=== PATIENT | male | born 1970 | race Caucasian/White ===

== ENCOUNTER → 2019-01-05 | Outpatient (CLI) | payer OTHER ==
--- NOTE | 2019-01-05 15:41 | XR ---
EXAMINATION TYPE: XR orbit detect foreign body DATE OF EXAM: 01/05/2019 COMPARISON: NONE HISTORY: MRI clearance possible metallic foreign body. TECHNIQUE: X-ray orbital detect foreign body. Blood and Hector frontal projection as well as true lateral projection. FINDINGS: No metallic intraorbital foreign body is seen to prevent MRI study. IMPRESSION: As above.
== END | disposition home or self-care (01) ==
LOC: RADXRMAIN 15:18
PROVIDERS: ATTEND Orthopaedic Surgery Sports Medicine
DX: Z01.818 Encounter for other preprocedural examination (principal)
CPT/HCPCS: 70030

== ENCOUNTER 2019-12-30 18:49 | Emergency (ER) | payer OTHER ==
[2019-12-30 18:54] VITALS: RESP 18
--- NOTE | 2019-12-30 20:13 | ED ---
Skin/Abscess/FB HPI - General Chief complaint: Skin/Abscess/Foreign Body Stated complaint: Insect bite Time Seen by Provider: 12/30/19 20:12 Source: patient Mode of arrival: ambulatory Limitations: no limitations - History of Present Illness Initial comments: Patient is a 49-year-old male presenting to emergency Department with chief complaint of a insect bite. Patient reports yesterday he developed an insect bite on the left forearm. Patient reports there was initially infection that was bigger but has not decreased in size after he was able to squeeze out some pus earlier today. Patient also reports today's noticed some red streaking moving proximally along the forearm. Patient reports there is minimal pain at the insect site but he was concerned for streaking so he came to the ED for evaluation. Denies any night sweats fevers or chills. Denies any significant upper changes between the insect bite site and the rest of his tissues. - Related Data Previous Rx's Medication Instructions Recorded Cephalexin [Keflex] 500 mg PO Q6HR #28 cap 12/30/19 Sulfamethox-Tmp 800-160Mg [Bactrim 1 each PO Q12HR #20 tab 12/30/19 Ds] Allergies Allergy/AdvReac Type Severity Reaction Status Date / Time No Known Allergies Allergy Verified 12/30/19 18:54 Review of Systems ROS Statement: Those systems with pertinent positive or pertinent negative responses have been documented in the HPI. ROS Other: All systems not noted in ROS Statement are negative. Past Medical History Past Medical History: No Reported History History of Any Multi-Drug Resistant Organisms: None Reported Past Surgical History: No Surgical Hx Reported Past Psychological History: No Psychological Hx Reported Smoking Status: Current every day smoker Past Alcohol Use History: Daily Past Drug Use History: Marijuana, Methamphetamine General Exam Limitations: no limitations General appearance: alert, in no apparent distress Head exam: Present: atraumatic, normocephalic, normal inspection Eye exam: Present: normal appearance, PERRL, EOMI Pupils: Present: normal accommodation ENT exam: Present: normal exam, normal oropharynx, mucous membranes moist, TM's normal bilaterally, normal external ear exam Neck exam: Present: normal inspection, full ROM. Absent: tenderness Respiratory exam: Present: normal lung sounds bilaterally. Absent: respiratory distress, wheezes, rales Cardiovascular Exam: Present: regular rate, normal rhythm, normal heart sounds Extremities exam: Present: full ROM, normal capillary refill, other (+2 ulnar and radial pulses bilateral.). Absent: normal inspection (There appears to be an abscess formation on the left forearm with a region of induration measuring approximately 3 cm in diameter with no fluctuance. No immediate discharge at this time. There also appears to be red streaking along the anterior aspect of the forearm.), tenderness (Mild to moderate tenderness at the site of abscess.) Back exam: Present: normal inspection, full ROM. Absent: tenderness Neurological exam: Present: alert, oriented X3, normal gait Psychiatric exam: Present: normal affect, normal mood Skin exam: Present: warm, dry, intact, normal color Course Vital Signs 12/30/19 12/30/19 18:51 20:53 Temperature 98 F 98.8 F Pulse Rate 95 82 Respiratory 18 18 Rate Blood Pressure 141/78 151/79 O2 Sat by Pulse 100 97 Oximetry Medical Decision Making - Medical Decision Making Patient is a 49-year-old male presenting to the emergency department with a chief complaint of insect bite. On exam patient has an abscess but it is not worth incision and drainage this time because there is no fluctuance palpable. There is only induration at this time. Patient started on Bactrim. There also appears to be some streaking suggesting lymphangitis that has been moving proximally along the forearm. Patient will also be discharged 10 day course of Bactrim. His vital stable. He has not been complaining of any fatigue weakness night sweats fevers or chills. Strict return parameters were thoroughly discussed the patient is understanding and agreeable. He was advised to follow- up with his primary care physician. Patient will also be started on Keflex. Case discussed with physician. Disposition Clinical Impression: Insect bite, Lymphangitis, Abscess of forearm Disposition: HOME SELF-CARE Condition: Stable Instructions (If sedation given, give patient instructions): Abscess (ED) Additional Instructions: Take prescribed medication as directed. Follow-up with a primary care physician. Return to emergency department if symptoms worsen. Prescriptions: Sulfamethox-Tmp 800-160Mg [Bactrim Ds] 1 each PO Q12HR #20 tab Cephalexin [Keflex] 500 mg PO Q6HR #28 cap Is patient prescribed a controlled substance at d/c from ED?: No Referrals: Madhavi Gaxiola MD [Primary Care Provider] - 1-2 days Time of Disposition: 20:43
[2019-12-30] MEDS ORDERED: SULFAMETHOX-TMP 800-160MG 1 EACH TAB PO STA (20:32)
[2019-12-30 20:54] VITALS: BP 151/79; PULSE 82; TEMP 98.8
== END 2019-12-30 20:54 | disposition home or self-care (01) ==
LOC: EC 18:49
DX: L02.414 Cutaneous abscess of left upper limb (principal); F17.200 Nicotine dependence, unspecified, uncomplicated; W57.XXXA Bitten or stung by nonvenomous insect and other nonvenomous arthropods, initial encounter
CPT/HCPCS: 99281

== ENCOUNTER 2020-01-01 06:01 | Emergency (ER) | payer OTHER ==
[2020-01-01 06:08] VITALS: BP 150/87; PULSE 96; RESP 18; TEMP 99
[2020-01-01] MEDS ORDERED: CEPHALEXIN 500MG STARTER PACK 4 CAP BTL PO STA (06:25)
[2020-01-01] MEDS ORDERED: cefTRIAXone 1,000 MG VIAL (IM USE) IM STA (06:25)
[2020-01-01] MEDS ORDERED: SULFAMETH-TMP DS STARTER PACK 2 TAB BTL PO STA (06:25)
--- NOTE | 2020-01-01 06:30 | ED ---
Skin/Abscess/FB HPI - General Chief complaint: Skin/Abscess/Foreign Body Stated complaint: recheck spider bite Time Seen by Provider: 01/01/20 06:08 Source: patient, RN notes reviewed Mode of arrival: ambulatory Limitations: no limitations - History of Present Illness Initial comments: This a 49-year-old male presents emergency Department with chief complaint of abscess to his left forearm. Patient was seen here few days ago for similar complaints but did not fill the prescription. Patient states that it seemed to worsen but now is starting to drain which is helping. Denies any fevers or chills. Denies any pain in his bicep region or left axilla. Patient denies any chest or shortness breath no nausea vomiting no other complaints. - Related Data Previous Rx's Medication Instructions Recorded Cephalexin [Keflex] 500 mg PO Q6HR #28 cap 12/30/19 Sulfamethox-Tmp 800-160Mg [Bactrim 1 each PO Q12HR #20 tab 12/30/19 Ds] Allergies Allergy/AdvReac Type Severity Reaction Status Date / Time No Known Allergies Allergy Verified 01/01/20 06:08 Review of Systems ROS Statement: Those systems with pertinent positive or pertinent negative responses have been documented in the HPI. ROS Other: All systems not noted in ROS Statement are negative. Past Medical History Past Medical History: No Reported History History of Any Multi-Drug Resistant Organisms: None Reported Past Surgical History: No Surgical Hx Reported Past Psychological History: No Psychological Hx Reported Smoking Status: Current every day smoker Past Alcohol Use History: Daily Past Drug Use History: Marijuana, Methamphetamine General Exam Limitations: no limitations General appearance: alert, in no apparent distress Head exam: Present: atraumatic, normocephalic, normal inspection Eye exam: Present: normal appearance, PERRL, EOMI. Absent: scleral icterus, conjunctival injection, periorbital swelling Respiratory exam: Present: normal lung sounds bilaterally. Absent: respiratory distress, wheezes, rales, rhonchi, stridor Cardiovascular Exam: Present: regular rate, normal rhythm, normal heart sounds. Absent: systolic murmur, diastolic murmur, rubs, gallop, clicks Extremities exam: Present: other (Left forearm there is approximately 1.5 cm nonfluctuant erythematous abscess with streaking erythema to the left elbow there is no tenderness proximal to left elbow there is no palpable lymph nodes left axilla is full range of motion left elbow) Skin exam: Present: warm, dry Course Vital Signs 01/01/20 06:04 Temperature 99 F Pulse Rate 96 Respiratory 18 Rate Blood Pressure 150/87 O2 Sat by Pulse 99 Oximetry Medical Decision Making - Medical Decision Making 49-year-old presented for abscess. Patient was given a shot of Rocephin advised to fill his prescription for antibiotics and was provided started packs. He is to continue warm compresses and he has to follow-up with PCP in 24 hours return to emergency department for recheck. Disposition Clinical Impression: Abscess of left forearm, Acute lymphangitis of left upper extremity Disposition: HOME SELF-CARE Condition: Stable Instructions (If sedation given, give patient instructions): Abscess (ED) Additional Instructions: Please follow-up for recheck and structure antiemetics as directed. Please return to the Emergency Department if symptoms worsen or any other concerns. Is patient prescribed a controlled substance at d/c from ED?: No Referrals: Madhavi Gaxiola MD [Primary Care Provider] - 1-2 days Time of Disposition: 06:30
== END 2020-01-01 06:30 | disposition home or self-care (01) ==
LOC: EC 06:01
DX: L02.414 Cutaneous abscess of left upper limb (principal); L03.124 Acute lymphangitis of left upper limb; F17.200 Nicotine dependence, unspecified, uncomplicated
CPT/HCPCS: 99283; 96372; J0696

== ENCOUNTER 2020-01-15 01:26 | Emergency (ER) | payer OTHER ==
[2020-01-15] MEDS ORDERED: HYDROmorphone 1 MG/ML 1 ML SYRINGE IVP STA (01:50)
[2020-01-15] MEDS ORDERED: LORazepam 2 MG/ML INJ IV STA (01:50)
[2020-01-15 02:27] LABS: Basophils # (A) 0.1 k/uL (0-0.2); Basophils % (A) 1 %; Eosinophils # (A) 0.2 k/uL (0-0.7); Eosinophils % (A) 1 %; HGB 15.8 gm/dL (13.0-17.5); Lymphocytes # (A) 1.5 k/uL (1.0-4.8); Lymphocytes % (A) 12 %; MCH 30.5 pg (25.0-35.0); MCHC 32.9 g/dL (31.0-37.0); MCV 92.7 fL (80.0-100.0); Mean Platelet Volume 6.6; Monocytes # (A) 0.8 k/uL (0-1.0); Monocytes % (A) 6 %; Neutrophils # (A) 9.7 k/uL (1.3-7.7); Neutrophils % (A) 79 %; Platelet Count 467 k/uL (150-450); RBC 5.17 m/uL (4.30-5.90); RDW 12.3 % (11.5-15.5); WBC 12.3 k/uL (3.8-10.6)
[2020-01-15] MEDS ORDERED: SODIUM CHLORIDE 0.9% 1,000 ML IV ONE (02:33)
--- NOTE | 2020-01-15 02:51 | US ---
EXAMINATION TYPE: US scrotum with doppler. Grayscale and color Doppler Duplex imaging performed of claudia deleon scrotum. DATE OF EXAM: 01/15/2020 COMPARISON: NONE CLINICAL HISTORY: pain. Pain in bilateral testicles x 6 days. EXAM MEASUREMENTS: TESTICLES: Right Testicle: 3.8 x 3.3 x 2.5 cm Left Testicle: 3.7 x 3.0 x 2.4 cm EPIDIDYMIS HEAD: Right Epididymis: 0.7 x 1.5 x 1.0 cm Left Epididymis: 1.1 x 1.5 x 1.7 cm -Anechoic area seen in right epididymal head: 0.3 x 0.4 x 0.4 cm. -Heterogeneous, vascular area seen lateral to right testicle measurin.0 x 2.4 x 2.1 cm , possible epididymal body and tail. -Heterogeneous, vascular area seen lateral to left testicle measurin.2 x 1.5 x 1.9 cm, possible e pididymal body and tail. Doppler performed to assess for testicular vascularity; bilateral color flow and waveforms are seen. Presence of hydroceles: Yes, on left measurin.1 x 0.7 x 0.3 cm. Presence of varicoceles: Vessels measure up to 1.8 mm on right and 1.3 mm on left. -Skin thickness measures 1.1 cm in greatest AP measurement. IMPRESSION: No testicular Torsion or mass. Skin thickening consistent with edema. Increased vascularity posterior to both testicles that could relate to bilateral epididymitis. No leslee dence of an abscess.
[2020-01-15] MEDS ORDERED: DOXYCYCLINE 100 MG CAP PO STA (02:52)
[2020-01-15] MEDS ORDERED: cefTRIAXone 1,000 MG VIAL (IM USE) IM STA (02:52)
[2020-01-15 02:53] LABS: ALT 23 U/L (4-49); AST 30 U/L (17-59); African American GFR (CKD) >90 (>60 ml/min/1.73 sqM); Albumin 3.6 g/dL (3.5-5.0); Alkaline Phosphatase 111 U/L (38-126); Anion Gap 5 mmol/L; Blood Urea Nitrogen 12 mg/dL (9-20); Carbon Dioxide 28 mmol/L (22-30); Chloride 102 mmol/L (98-107); Glucose 112 mg/dL (74-99); Non-African American GFR(CKD) >90 (>60 ml/min/1.73 sqM); Potassium 4.3 mmol/L (3.5-5.1); Sodium 135 mmol/L (137-145); Total Bilirubin 0.5 mg/dL (0.2-1.3); Total Protein 6.6 g/dL (6.3-8.2)
--- NOTE | 2020-01-15 03:17 | ED ---
General Adult HPI <Vivi Barth - Last Filed: 01/15/20 04:33> - General Source: patient, RN notes reviewed, old records reviewed Mode of arrival: ambulatory Limitations: no limitations <Asael Henderson - Last Filed: 01/18/20 14:23> - General Chief complaint: Urogenital Stated complaint: Testicle pain Time Seen by Provider: 01/15/20 01:31 - History of Present Illness Initial comments: 49-year-old male patient presents to ED forbilateral testicle pain that began about 2 days ago. Denies any fevers chills nausea vomiting or diarrhea. Denies any dysuria. Denies any other acute complaints. Systemic: Pt denies fatigue, fever/chills, rash. Pt denies weakness, night sweats, weight loss. Neuro: Pt denies headache, visual disturbances, syncope or pre-syncope. HEENT: Pt denies ocular discharge or irritation, otalgia, rhinorrhea, pharyngitis or notable lymphadenopathy. Cardiopulmonary: Pt denies chest pain, SOB, heart palpitations, dyspnea on exertion. Abdominal/GI: Pt denies abdominal pain, n/v/d. : Pt denies dysuria, burning w/ urination, frequency/urgency. Denies new onset urinary or bowel incontinence. MSK: Pt denies myalgia, loss of strength or function in extremities. Neuro: Pt denies new onset weakness, paresthesias. (Asael Henderson) - Related Data Previous Rx's Medication Instructions Recorded Cephalexin [Keflex] 500 mg PO Q6HR #28 cap 12/30/19 Sulfamethox-Tmp 800-160Mg [Bactrim 1 each PO Q12HR #20 tab 12/30/19 Ds] Doxycycline [Vibramycin] 100 mg PO BID 14 Days #28 capsule 01/15/20 Allergies Allergy/AdvReac Type Severity Reaction Status Date / Time No Known Allergies Allergy Verified 01/15/20 01:42 Review of Systems ROS Other: All systems not noted in ROS Statement are negative. <Vivi Barth - Last Filed: 01/15/20 04:33> ROS Other: All systems not noted in ROS Statement are negative. <Asael Henderson - Last Filed: 01/18/20 14:23> ROS Statement: Those systems with pertinent positive or pertinent negative responses have been documented in the HPI. Past Medical History Past Medical History: No Reported History History of Any Multi-Drug Resistant Organisms: None Reported Past Surgical History: No Surgical Hx Reported Past Psychological History: No Psychological Hx Reported Smoking Status: Current every day smoker Past Alcohol Use History: Daily Past Drug Use History: Marijuana, Methamphetamine <Asael Henderson - Last Filed: 01/18/20 14:23> General Exam Limitations: no limitations <Asael Henderson - Last Filed: 01/18/20 14:23> - General Exam Comments Initial Comments: Constitutional: NAD, AOX3, Pt has pleasant affect. HEENT: NC/AT, trachea midline, neck supple, no lymphadenopathy. External ears appear normal, without discharge. Mucous membranes moist. Eyes PERRLA, EOM intact. There is no scleral icterus. No pallor noted. Cardiopulmonary: RRR, no murmurs, rubs or gallops, no JVD noted. Lungs CTAB in anterior and posterior chisholm. No peripheral edema. Abdominal exam: Abdomen soft and non-distended. Abdomen non-tender to palpation in all 4 quadrants. Bowel sounds active in LLQ. No hepatosplenomegaly. No ecchymosis Neuro: CN II-XII grossly intact. No nuchal rigidity. MSK: No posterior calf tenderness bilaterally. Posterior tibialis and radial pulse +2 bilaterally. Sensation intact in upper and lower extremities. Full a ctive ROM in upper and lower extremities, 5/5 stregnth. : Mild bilateral scrotal tenderness. Cremasteric reflexes intact. No extrenal skin change. no blue dot sign. No masses. (Asael Henderson) Course Vital Signs 01/15/20 01/15/20 01/15/20 01:40 02:50 03:45 Temperature 98.5 F Pulse Rate 107 H 86 84 Respiratory 20 19 19 Rate Blood Pressure 123/79 123/76 124/74 O2 Sat by Pulse 95 96 95 Oximetry 01/15/20 04:44 Temperature 97.9 F Pulse Rate 83 Respiratory 18 Rate Blood Pressure 123/75 O2 Sat by Pulse 97 Oximetry Medical Decision Making - Lab Data Result diagrams: 01/15/20 02:08 01/15/20 02:08 <Vivi Barth - Last Filed: 01/15/20 04:33> - Lab Data Result diagrams: 01/15/20 02:08 01/15/20 02:08 <Asael Henderson - Last Filed: 01/18/20 14:23> - Medical Decision Making 49-year-old male patient presents to ED forbilateral testicle pain that began a bout 2 days ago. Denies any fevers chills nausea vomiting or diarrhea. Denies any dysuria. Denies any other acute complaints. Patient vital signs are stable, afebrile. Physical exam displayed: Mild bilateral scrotal tenderness. Cremasteric reflexes intact. No extrenal skin change. no blue dot sign. No masses. Laboratory investigations revealed mild leukocytosis. Ultrasound displayed likely bilateral epididymitis no evidence of an abscess. Patient does report that he does have some concern for possible sexually transmitted infection, denies any injections into the region or any IV drug use, denies anal sex or anything of that nature. Patient discharged with antibiotics and will di scharge the patient follow up. Return to ER if any worsening symptoms. Case discussed with Dr. Barth. (Asael Henderson) - Lab Data Lab Results 01/15/20 01/15/20 01/15/20 Range/Units 02:08 02:08 02:08 WBC 12.3 H (3.8-10.6) k/uL RBC 5.17 (4.30-5.90) m/uL Hgb 15.8 (13.0-17.5) gm/dL Hct 48.0 (39.0-53.0) % MCV 92.7 (80.0-100.0) fL MCH 30.5 (25.0-35.0) pg MCHC 32.9 (31.0-37.0) g/dL RDW 12.3 (11.5-15.5) % Plt Count 467 H (150-450) k/uL Neutrophils % 79 % Lymphocytes % 12 % Monocytes % 6 % Eosinophils % 1 % Basophils % 1 % Neutrophils # 9.7 H (1.3-7.7) k/uL Lymphocytes # 1.5 (1.0-4.8) k/uL Monocytes # 0.8 (0-1.0) k/uL Eosinophils # 0.2 (0-0.7) k/uL Basophils # 0.1 (0-0.2) k/uL Sodium (137-145) mmol/L Potassium (3.5-5.1) mmol/L Chloride (98-107) mmol/L Carbon Dioxide (22-30) mmol/L Anion Gap mmol/L BUN (9-20) mg/dL Creatinine (0.66-1.25) mg/dL Est GFR (CKD-EPI)AfAm (>60 ml/min/1.73 sqM) Est GFR (CKD-EPI)NonAf (>60 ml/min/1.73 sqM) Glucose (74-99) mg/dL Plasma Lactic Acid Walt (0.7-2.0) mmol/L Calcium (8.4-10.2) mg/dL Total Bilirubin (0.2-1.3) mg/dL AST (17-59) U/L ALT (4-49) U/L Alkaline Phosphatase (38-126) U/L Total Protein (6.3-8.2) g/dL Albumin (3.5-5.0) g/dL Urine Color Yellow Urine Appearance Cloudy (Clear) Urine pH 8.0 (5.0-8.0) Ur Specific [place] 1.022 (1.001-1.035) Urine Protein Trace H (Negative) Urine Glucose (UA) Negative (Negative) Urine Ketones Negative (Negative) Urine Blood Negative (Negative) Urine Nitrite Negative (Negative) Urine Bilirubin Negative (Negative) Urine Urobilinogen <2.0 (<2.0) mg/dL Ur Leukocyte Esterase Negative (Negative) Urine RBC 2 (0-5) /hpf Urine WBC 2 (0-5) /hpf Urine Mucus Occasional H (None) /hpf Chlamydia Source Urine Chlamydia DNA (PCR) Negative (Neg,Equiv) N. gonorrhoeae Source Urine N.gonorrhoeae DNA Probe Negative (Neg,Equiv) 01/15/20 01/15/20 Range/Units 02:08 02:08 WBC (3.8-10.6) k/uL RBC (4.30-5.90) m/uL Hgb (13.0-17.5) gm/dL Hct (39.0-53.0) % MCV (80.0-100.0) fL MCH (25.0-35.0) pg MCHC (31.0-37.0) g/dL RDW (11.5-15.5) % Plt Count (150-450) k/uL Neutrophils % % Lymphocytes % % Monocytes % % Eosinophils % % Basophils % % Neutrophils # (1.3-7.7) k/uL Lymphocytes # (1.0-4.8) k/uL Monocytes # (0-1.0) k/uL Eosinophils # (0-0.7) k/uL Basophils # (0-0.2) k/uL Sodium 135 L (137-145) mmol/L Potassium 4.3 (3.5-5.1) mmol/L Chloride 102 (98-107) mmol/L Carbon Dioxide 28 (22-30) mmol/L Anion Gap 5 mmol/L BUN 12 (9-20) mg/dL Creatinine 0.90 (0.66-1.25) mg/dL Est GFR (CKD-EPI)AfAm >90 (>60 ml/min/1.73 sqM) Est GFR (CKD-EPI)NonAf >90 (>60 ml/min/1.73 sqM) Glucose 112 H (74-99) mg/dL Plasma Lactic Acid Walt 1.4 (0.7-2.0) mmol/L Calcium 9.0 (8.4-10.2) mg/dL Total Bilirubin 0.5 (0.2-1.3) mg/dL AST 30 (17-59) U/L ALT 23 (4-49) U/L Alkaline Phosphatase 111 (38-126) U/L Total Protein 6.6 (6.3-8.2) g/dL Albumin 3.6 (3.5-5.0) g/dL Urine Color Urine Appearance (Clear) Urine pH (5.0-8.0) Ur Specific [place] (1.001-1.035) Urine Protein (Negative) Urine Glucose (UA) (Negative) Urine Ketones (Negative) Urine Blood (Negative) Urine Nitrite (Negative) Urine Bilirubin (Negative) Urine Urobilinogen (<2.0) mg/dL Ur Leukocyte Esterase (Negative) Urine RBC (0-5) /hpf Urine WBC (0-5) /hpf Urine Mucus (None) /hpf Chlamydia Source Chlamydia DNA (PCR) (Neg,Equiv) N. gonorrhoeae Source N.gonorrhoeae DNA Probe (Neg,Equiv) Disposition Is patient prescribed a controlled substance at d/c from ED?: No <Vivi Barth P - Last Filed: 01/15/20 04:33> Is patient prescribed a controlled substance at d/c from ED?: No <Asael Henderson - Last Filed: 01/18/20 14:23> Clinical Impression: Epididymitis Disposition: HOME SELF-CARE Condition: Stable Instructions (If sedation given, give patient instructions): Epididymitis (ED) Additional Instructions: Take antibiotics as directed. Follow-up with primary care provider and urologist tomorrow. Return to ER if any worsening symptoms. Prescriptions: Doxycycline [Vibramycin] 100 mg PO BID 14 Days #28 capsule Referrals: Madhavi Gaxiola MD [Primary Care Provider] - 1-2 days
[2020-01-15 04:15] LABS: Appearance,Urine Cloudy (Clear); Bilirubin,Urine Negative (Negative); Blood,Urine Negative (Negative); Color,Urine Yellow; Glucose,Urine (UA) Negative (Negative); Ketones,Urine Negative (Negative); Leukocyte Esterase,Urine Negative (Negative); Mucus,Urine Occasional /hpf; Nitrite,Urine Negative (Negative); Protein,Urine Trace (Negative); RBC,Urine 2 /hpf (0-5); Specific Gravity,Urine 1.022 (1.001-1.035); Urobilinogen,Urine <2.0 mg/dL (<2.0); WBC,Urine 2 /hpf (0-5)
[2020-01-15 04:58] VITALS: BP 123/75; PULSE 83; RESP 18; TEMP 97.9
[2020-01-16 15:14] LABS: C. trachomatis,PCR Negative (Neg,Equiv); Chlamydia trachomatis Source Urine; N. gonorrhoeae,PCR Negative (Neg,Equiv); Neisseria Source Urine
== END 2020-01-15 04:44 | disposition home or self-care (01) ==
LOC: EC 01:26
DX: N45.1 Epididymitis (principal); D72.829 Elevated white blood cell count, unspecified; F17.200 Nicotine dependence, unspecified, uncomplicated
CPT/HCPCS: 36415; 80053; 83605; 85025; 81001; 87040; 87491; 87591; 93975; 76870; 99284; 96374; 96375; 96361 ×2; 96372; J2060; J0696; J1170

== ENCOUNTER 2020-05-20 12:34 | Observation (INO) | payer OTHER ==
[2020-05-20] MEDS ORDERED: FLUORESCEIN STRIPS 1 MG STRIP LEFT EYE ONE (13:12)
[2020-05-20] MEDS ORDERED: predniSONE 20 MG TAB PO STA (13:14)
--- NOTE | 2020-05-20 13:24 | ED ---
General Adult HPI - General Chief complaint: Neuro Symptoms/Deficit Stated complaint: right side facial numbness Time Seen by Provider: 05/20/20 12:50 Source: patient Mode of arrival: ambulatory Limitations: no limitations - History of Present Illness Initial comments: 50-year-old male with no reported medical history once emergency department with reported numbness, tingling and right-sided facial droop. He reports that his symptoms have been ongoing since Tuesday. Patient has been unable to close his right eye admits to blurred vision. Admits to dysarthria. Denies expressive aphasia or confusion. No fevers or chills. Denies any recent head trauma. No hearing changes. Reports that his symptoms were present after he awoke from a nap. Denies history of strokes. No weakness, numbness or tingling in his extremities. Denies any headaches, fevers or chills. He purchased lubricating eye drops and has been using them several times per day. Patient presents with significant injection to his left eye. Reports to foreign body, suspected to be wood, which he was able to extract yesterday. Denies any visual changes out of his left eye. No other alleviating, precipitating or modifying factors - Related Data Previous Rx's Medication Instructions Recorded Ofloxacin 0.3% Ophth Soln [Ocuflox 1 drops LEFT EYE Q4HR 7 Days #1 05/21/20 Ophth Soln] bottle Allergies Allergy/AdvReac Type Severity Reaction Status Date / Time No Known Allergies Allergy Verified 05/20/20 14:13 Review of Systems ROS Statement: Those systems with pertinent positive or pertinent negative responses have been documented in the HPI. ROS Other: All systems not noted in ROS Statement are negative. Past Medical History Past Medical History: No Reported History History of Any Multi-Drug Resistant Organisms: None Reported Past Surgical History: No Surgical Hx Reported Past Psychological History: No Psychological Hx Reported Smoking Status: Current every day smoker Past Alcohol Use History: Daily Past Drug Use History: Marijuana, Methamphetamine - Past Family History Mother Additional Family Medical History / Comment(s): maternal aunt had stroke General Exam Limitations: no limitations General appearance: alert, in no apparent distress Head exam: Present: atraumatic, normocephalic, other (inability to wrinkle right forehead. right eye difficult to close. right facial droop) Eye exam: Present: PERRL, EOMI, conjunctival injection (left). Absent: scleral icterus, periorbital swelling ENT exam: Present: normal exam, mucous membranes moist Neck exam: Present: normal inspection. Absent: tenderness, meningismus, lymphadenopathy Respiratory exam: Present: normal lung sounds bilaterally. Absent: respiratory distress, wheezes, rales, rhonchi, stridor Cardiovascular Exam: Present: regular rate, normal rhythm, normal heart sounds. Absent: systolic murmur, diastolic murmur, rubs, gallop, clicks GI/Abdominal exam: Present: soft, normal bowel sounds. Absent: distended, tenderness, guarding, rebound, rigid Extremities exam: Present: normal inspection, full ROM, normal capillary refill. Absent: tenderness, pedal edema, joint swelling, calf tenderness Back exam: Present: normal inspection Neurological exam: Present: alert, oriented X3, CN II-XII intact Psychiatric exam: Present: normal affect, normal mood Skin exam: Present: warm, dry, intact, normal color. Absent: rash Course Vital Signs 05/20/20 05/20/20 05/20/20 12:52 15:19 15:59 Temperature 98.3 F 98.3 F Pulse Rate 106 H 77 Pulse Rate [ 72 Right Pulse Oximetery] Respiratory 18 16 17 Rate Blood Pressure 128/73 119/76 Blood Pressure 124/79 [Right Arm Sitting] O2 Sat by Pulse 97 100 97 Oximetry 05/20/20 17:12 Temperature 97.9 F Pulse Rate 82 Pulse Rate [ Right Pulse Oximetery] Respiratory 18 Rate Blood Pressure 123/78 Blood Pressure [Right Arm Sitting] O2 Sat by Pulse 98 Oximetry - Reevaluation(s) Reevaluation #1: Dr. Vazquez paged 05/20/20 14:12 Reevaluation #2: Spoke with Dr. Vazquez - requesting placement in stroke robot. Requesting MRI with and without contrast of brain 05/20/20 15:12 Reevaluation #3: Spoke with Dr. Gaxiola who requested admission 05/20/20 15:28 EKG Findings - EKG Comments: EKG Findings:: EKG demonstrates sinus rhythm with a ventricular rate of 88. SC interval 154. QRS E4. QTC of 459. No acute ST segment elevations or depressions Medical Decision Making - Medical Decision Making Upon arrival patient is placed into room 9. A thorough history and physical exam was performed. Laboratory studies were obtained. 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 I did stain the patient's left eye with the floor seems strip and evaluation was performed to identify foreign body. Patient does have copious drainage however no residual foreign body identified. I did order ofloxacin drops for the patient's left eye. Katy bricating eye drops for both eyes. I did request a stroke workup which the patient did agree. Laboratory studies are reviewed. Glucose is 119. CT of the patient's brain was read as a possible hyperdense left MCA indicating intralumenal thrombus with small petechial hemorrhage within the periphery of the left parietal lobe skull to exclude. Angiography is also performed which demonstrates no MCA thrombus. No large vessel intracranial occlusion, significant stenosis or aneurysmal change. I did discuss these results with the radiologist. Results are also discussed with Dr. Vazquez - states no large vessel occlusion. He is requesting an MRI with and without contrast. I discussed this with the patient who agreed to this plan. Spoke with Dr. Gaxiola who agreed to admit the patient. Neurology will be placed on consult. Patient remained in stable condition awaiting a bed on the floor - Lab Data Result diagrams: 05/20/20 13:24 05/20/20 13:24 Lab Results 05/20/20 05/20/20 05/20/20 Range/Units 13:24 13:24 13:24 WBC 6.6 (3.8-10.6) k/uL RBC 4.86 (4.30-5.90) m/uL Hgb 14.7 (13.0-17.5) gm/dL Hct 44.4 (39.0-53.0) % MCV 91.3 (80.0-100.0) fL MCH 30.1 (25.0-35.0) pg MCHC 33.0 (31.0-37.0) g/dL RDW 13.3 (11.5-15.5) % Plt Count 267 (150-450) k/uL MPV 6.7 Neutrophils % 57 % Lymphocytes % 26 % Monocytes % 7 % Eosinophils % 6 % Basophils % 1 % Neutrophils # 3.8 (1.3-7.7) k/uL Lymphocytes # 1.7 (1.0-4.8) k/uL Monocytes # 0.5 (0-1.0) k/uL Eosinophils # 0.4 (0-0.7) k/uL Basophils # 0.1 (0-0.2) k/uL PT 10.3 (9.0-12.0) sec INR 1.0 (<1.2) APTT 25.1 (22.0-30.0) sec Sodium 141 (137-145) mmol/L Potassium 3.9 (3.5-5.1) mmol/L Chloride 104 (98-107) mmol/L Carbon Dioxide 28 (22-30) mmol/L Anion Gap 9 mmol/L BUN 18 (9-20) mg/dL Creatinine 0.91 (0.66-1.25) mg/dL Est GFR (CKD-EPI)AfAm >90 (>60 ml/min/1.73 sqM) Est GFR (CKD-EPI)NonAf >90 (>60 ml/min/1.73 sqM) Glucose 119 H (74-99) mg/dL Calcium 9.0 (8.4-10.2) mg/dL Total Bilirubin 0.6 (0.2-1.3) mg/dL AST 36 (17-59) U/L ALT 39 (4-49) U/L Alkaline Phosphatase 95 (38-126) U/L Troponin I (0.000-0.034) ng/mL Total Protein 7.1 (6.3-8.2) g/dL Albumin 4.0 (3.5-5.0) g/dL 05/20/20 Range/Units 13:24 WBC (3.8-10.6) k/uL RBC (4.30-5.90) m/uL Hgb (13.0-17.5) gm/dL Hct (39.0-53.0) % MCV (80.0-100.0) fL MCH (25.0-35.0) pg MCHC (31.0-37.0) g/dL RDW (11.5-15.5) % Plt Count (150-450) k/uL MPV Neutrophils % % Lymphocytes % % Monocytes % % Eosinophils % % Basophils % % Neutrophils # (1.3-7.7) k/uL Lymphocytes # (1.0-4.8) k/uL Monocytes # (0-1.0) k/uL Eosinophils # (0-0.7) k/uL Basophils # (0-0.2) k/uL PT (9.0-12.0) sec INR (<1.2) APTT (22.0-30.0) sec Sodium (137-145) mmol/L Potassium (3.5-5.1) mmol/L Chloride (98-107) mmol/L Carbon Dioxide (22-30) mmol/L Anion Gap mmol/L BUN (9-20) mg/dL Creatinine (0.66-1.25) mg/dL Est GFR (CKD-EPI)AfAm (>60 ml/min/1.73 sqM) Est GFR (CKD-EPI)NonAf (>60 ml/min/1.73 sqM) Glucose (74-99) mg/dL Calcium (8.4-10.2) mg/dL Total Bilirubin (0.2-1.3) mg/dL AST (17-59) U/L ALT (4-49) U/L Alkaline Phosphatase (38-126) U/L Troponin I <0.012 (0.000-0.034) ng/mL Total Protein (6.3-8.2) g/dL Albumin (3.5-5.0) g/dL Disposition Clinical Impression: Facial paralysis on right side, Conjunctival irritation Disposition: ADMITTED IP TO THIS [facility] Condition: Stable Is patient prescribed a controlled substance at d/c from ED?: No Decision to Admit Reason: Admit from EC Decision Date: 05/20/20 Decision Time: 15:23
[2020-05-20 13:34] LABS: Basophils # (A) 0.1 k/uL (0-0.2); Basophils % (A) 1 %; Eosinophils # (A) 0.4 k/uL (0-0.7); Eosinophils % (A) 6 %; HCT 44.4 % (39.0-53.0); HGB 14.7 gm/dL (13.0-17.5); Lymphocytes # (A) 1.7 k/uL (1.0-4.8); Lymphocytes % (A) 26 %; MCH 30.1 pg (25.0-35.0); MCV 91.3 fL (80.0-100.0); Mean Platelet Volume 6.7; Monocytes # (A) 0.5 k/uL (0-1.0); Monocytes % (A) 7 %; Neutrophils # (A) 3.8 k/uL (1.3-7.7); Neutrophils % (A) 57 %; Platelet Count 267 k/uL (150-450); RBC 4.86 m/uL (4.30-5.90); RDW 13.3 % (11.5-15.5); WBC 6.6 k/uL (3.8-10.6)
[2020-05-20 13:45] LABS: Partial Thromboplastin Time 25.1 sec (22.0-30.0); Prothrombin Time 10.3 sec (9.0-12.0)
[2020-05-20 13:47] LABS: ALT 39 U/L (4-49); AST 36 U/L (17-59); African American GFR (CKD) >90 (>60 ml/min/1.73 sqM); Alkaline Phosphatase 95 U/L (38-126); Anion Gap 9 mmol/L; Blood Urea Nitrogen 18 mg/dL (9-20); Carbon Dioxide 28 mmol/L (22-30); Chloride 104 mmol/L (98-107); Glucose 119 mg/dL (74-99); Non-African American GFR(CKD) >90 (>60 ml/min/1.73 sqM); Potassium 3.9 mmol/L (3.5-5.1); Sodium 141 mmol/L (137-145); Total Bilirubin 0.6 mg/dL (0.2-1.3); Total Protein 7.1 g/dL (6.3-8.2)
--- NOTE | 2020-05-20 13:48 | CT ---
EXAMINATION TYPE: CT brain wo con DATE OF EXAM: 05/20/2020 COMPARISON: None HISTORY: Right sided facial numbness, tingling, slurred speech, facial drooping, eye blurry CT DLP: 1071.[address] of the brain was performed. The ventricles, basal cisterns and sulci overlying the cerebral convexities demonstrate mild enlargem ent. No definitive sulcal effacement at this time. There is a partially hyperdense left MCA indicating int raluminal thrombus. Small petechial hemorrhage within the periphery of the left parietal lobe axial i mage 27 and coronal image 38 is difficult to exclude. There is minimal attenuation about the periventricular white matter and deep white matter of both cer ebral hemispheres, compatible with chronic small vessel ischemia. Differential diagnosis does include demyelination. No mass effects are seen.No midline shift. Osseous calvarium is intact. If symptoms persist consider MRI. IMPRESSION: 1. There is a partially hyperdense left MCA indicating intraluminal thrombus. Small petechial hemorrh age within the periphery of the left parietal lobe axial image 27 and coronal image 38 is difficult t o exclude.
--- NOTE | 2020-05-20 14:00 | CT ---
EXAMINATION TYPE: CT angio head neck DATE OF EXAM: 05/20/2020 COMPARISON: CT brain same day HISTORY: 50-year-old male Right sided facial numbness, tingling, slurred speech, facial drooping, eye blurry TECHNIQUE: Contiguous axial scanning of the head and neck performed with IV Contrast, patient injecte d with 65 mL of Isovue 370. Coronal/sagittal MIP reconstructions performed. 3-D reconstructions gener ated on a dedicated independent workstation. CT DLP: 442.9 mGycm Automated exposure control for dose reduction was used. FINDINGS: NECK: Emphysematous change of the visualized upper lungs. There is variant direct takeoff of the left vertebral artery directly from the aortic arch. The right vertebral artery is dominant but both vessels are patent throughout their course. Origin of the righ t vertebral artery is patent. The origin of the brachiocephalic artery is excluded from view. Right common and internal carotid arteries are widely patent. The left common and internal carotid arteries are widely patent. Mild degenerative disc disease mid to lower cervical spine with reversal of the normal cervical lordo sis. HEAD: V4 segment left vertebral artery becomes further diminishes. Right vertebral artery and basilar arter y are patent. There is persistent origin right posterior cerebral artery. Otherwise, posterior circulation is patent. The internal carotid arteries and remainder of the anterior circulation are patent. No aneurysmal changes identified. IMPRESSION: 1. NECK: DOMINANT RIGHT VERTEBRAL ARTERY. THERE IS VERY DIRECT TAKEOFF OF THE LEFT VERTEBRAL ARTERY D IRECTLY FROM THE AORTIC ARCH. CAROTID VESSELS OF THE NECK ARE WIDELY PATENT. INCIDENTAL COPD IN THE V ISUALIZED UPPER LUNGS. 2. HEAD: HYPOPLASTIC V4 SEGMENT LEFT VERTEBRAL ARTERY AND PERSISTENT ORIGIN RIGHT TECHNOLOGY APPLICATIONS CONSULTANT, BOTH CON GENITAL VARIATION. NO LARGE VESSEL INTRACRANIAL ARTERIAL OCCLUSION, SIGNIFICANT STENOSIS, OR ANEURYSM AL CHANGE. NO LEFT MCA THROMBUS IS IDENTIFIED.
[2020-05-20] MEDS ORDERED: ARTIFICIAL TEARS OINTMENT 3.5 GM TUBE BOTH EYES STA (15:54)
[2020-05-20] MEDS: OFLOXACIN 0.3% OPHTH DROPS 5 ML BOTTLE LEFT EYE SCH ×2 (17:11→21:07)
--- NOTE | 2020-05-20 18:19 | MR ---
EXAMINATION TYPE: MR brain wo/w con DATE OF EXAM: 05/20/2020 COMPARISON: None HISTORY: facial palsy, possible petechial hemorrhage. Right side numbness and facial droop, blurred v ision Right eye CONTRAST: Standard multiplanar, multisequence MRI departmental protocol utilizing 7.5 mL intravenous Gadavist g adolinium contrast. There is mild cerebral atrophy appropriate for age. There is no mass effect nor midline shift. There is no sign of intracranial hemorrhage. Corpus callosum is intact. Diffusion images show no evidence o f an acute infarct. The brainstem is intact. There is no evidence of cerebral edema. Sella turcica appears normal. There is no evidence of a posterior fossa mass. The snow-white matter s tructures have fairly normal signal pattern. Contrast images show no pathologic enhancement. There is normal enhancement of the venous sinuses. Th e right posterior cerebral artery is filled through the right posterior communicating artery. The jose bes are symmetric. There is no evidence of retro-orbital mass. IMPRESSION: Negative MR scan of the brain. No evidence of an infarct.
[2020-05-20] MEDS: valACYclovir 500 MG TAB PO SCH ×2 (18:57→20:23)
[2020-05-21] MEDS: OFLOXACIN 0.3% OPHTH DROPS 5 ML BOTTLE LEFT EYE SCH ×4 (00:45→12:10)
[2020-05-21 08:26] LABS: Cholesterol 183 mg/dL (<200); HDL Cholesterol 36 mg/dL (40-60); LDL Cholesterol,Calculated 134 mg/dL (0-99); Triglycerides 65 mg/dL (<150)
[2020-05-21] MEDS ORDERED: predniSONE 20 MG TAB PO SCH (09:00)
[2020-05-21] MEDS: valACYclovir 500 MG TAB PO SCH (09:30)
[2020-05-21 11:02] VITALS: RESP 20; TEMP 98.1
[2020-05-21 11:52] LABS: Glucose,Whole Blood 166 mg/dL (75-99)
[2020-05-21] MEDS ORDERED: ACETAMINOPHEN TAB 500 MG TAB PO PRN (12:12)
--- NOTE | 2020-05-21 12:13 | P.HPIM ---
History of Present Illness H&P Date: 05/21/20 Chief Complaint: Right-sided facial paralysis This is a 50 year old male patient right facial droop that he reports started Tuesday night. Patient reports he is unable to close his right eye and has blurry vision. Patient denies any other new neurological symptoms. Denies loss of consciousness or history of trauma. Patient denies any significant medical history. Does admit to smoking approximately 1 pack a day. Denies any previous episodes similar to current episode. Head CT was performed in ER showing a partially hyperdense left MCA indicating luminal thrombus small petechial hemorrhage within the periphery of the left parietal lobe axial Image 27 and coronal image 38 is difficult to exclude. Patient was evaluated by neurology services and it was recommended MRI to be completed. MRI was completed showing negative scan of brain no evidence of infarct. She started on prednisone and Valtrex. Patient also reports that he recently got wood chip into his left eye when he was chopping wood last week. Patient was started on ofloxacin eyedrops. Patient does have noted right facial paralysis unable to raise eyebrow an uneven smile to right side. Equal strength throughout all extremities. Patient alert and oriented 3 able to answer questions appropriately. Patient currently getting treated for Guzman's palsy awaiting neurology input. Patient denies any significant improvement with the initiation of prednisone and Valtrex. Patient denies any recent illness. Patient denies chest pain or shortness breath. Patient denies nausea vomiting or diarrhea. Patient denies any urinary burning or frequency Past Medical History Past Medical History: No Reported History History of Any Multi-Drug Resistant Organisms: None Reported Past Surgical History: No Surgical Hx Reported Additional Past Surgical History / Comment(s): pt. states he had a lump removed from his back Past Anesthesia/Blood Transfusion Reactions: No Reported Reaction Past Psychological History: No Psychological Hx Reported Smoking Status: Current every day smoker Past Alcohol Use History: Daily Past Drug Use History: Marijuana, Methamphetamine - Past Family History Mother Additional Family Medical History / Comment(s): maternal aunt had stroke Medications and Allergies Home Medications Medication Instructions Recorded Confirmed Type No Known Home Medications 05/20/20 05/20/20 History Allergies Allergy/AdvReac Type Severity Reaction Status Date / Time No Known Allergies Allergy Verified 05/20/20 14:13 Physical Exam Vitals: Vital Signs Temp Pulse Pulse Resp BP BP Pulse Ox 05/21/20 08:00 98.1 F 68 20 108/73 100 05/21/20 03:10 98.3 F 85 17 113/56 97 05/21/20 00:46 98.8 F 75 17 101/57 96 05/20/20 20:25 98.2 F 83 18 121/72 97 05/20/20 18:00 72 18 05/20/20 17:12 97.9 F 82 18 123/78 98 05/20/20 15:59 98.3 F 72 17 124/79 97 05/20/20 15:19 77 16 119/76 100 05/20/20 12:52 98.3 F 106 H 18 128/73 97 Intake and Output 05/20/20 05/21/20 05/21/20 22:59 06:59 14:59 Intake Total 240 236 Output Total 410 Balance -170 236 Intake: Oral 240 236 Output: Urine 410 Other: # Voids 1 1 1 Weight 77.111 kg 78.2 kg Head normocephalic Neck supple Lungs clear to auscultation bilaterally no wheezing or crackles Heart regular rate and rhythm S1-S2, no rub or gallop Abdomen is soft nontender nondistended positive bowel sounds no hepatosplenomegaly Extremities no edema Neuro alert and orientated to 3. Equal strength throughout all extremities. Asymmetrical right facial smile. Speech is clear. Answers questions appropriately Results CBC & Chem 7: 05/20/20 13:24 05/20/20 13:24 Labs: Abnormal Lab Results - Last 24 Hours (Table) 05/20/20 05/21/20 05/21/20 Range/Units 13:24 06:49 11:51 Glucose 119 H (74-99) mg/dL POC Glucose (mg/dL) 166 H (75-99) mg/dL LDL Cholesterol, Calc 134 H (0-99) mg/dL HDL Cholesterol 36 L (40-60) mg/dL Thrombosis Risk Factor Assmnt - Choose All That Apply Any of the Below Risk Factors Present?: Yes Each Factor Represents 1 point: Age 41-60 years Other Risk Factors: No Other congenital or acquired thrombophilia - If yes, enter type in comment: No Thrombosis Risk Factor Assessment Total Risk Factor Score: 1 Thrombosis Risk Factor Assessment Level: Low Risk Assessment and Plan Assessment: 1. 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 MRI negative for acute infarct. Neurology services have been consulted. Patient started on Valtrex and prednisone 2. Abrasion to left eye. patient started on ofloxacin eye drops 3. Nicotine dependence. Patient declined nicotine patch at this time. Patient educated greater than 3 minutes on smoking cessation DVT prophylaxis Lovenox. GI prophylaxis Protonix Neurology service is consulted. Patient maintained on Valtrex and prednisone at this time Time with Patient: Greater than 30
--- NOTE | 2020-05-21 13:12 | P.CNNES ---
History of Present Illness Consult date: 05/21/20 Requesting physician: Albertina Hirsch Reason for Consult: Right-sided facial droop, possible petechial brain hemorrhage History of Present Illness: Patient is a 50-year-old male came to the hospital yesterday at 12:34 PM for right facial droop. Patient states that on 05/16/2020 he woke up with right face not working well, and would include from right side of the mouth. He also noticed that when he was brushing his teeth, after brushing teeth, it felt very salty involving right side of the tongue. He initially denied headache, but later mentioned that his back of head was hurting when he was coughing about a week prior. He denies any changes in hearing or excessive lacrimation. Patient says that he was not able to close his right eye well. Patient came to the hospital yesterday. Vital signs of arrival blood pressure 128/73, pulse rate [address] of the head showed partially hyperdense left MCA indicating intraluminal thrombus. Small petechial hemorrhage within the periphery of the left parietal lobe is difficult to exclude. CT angiogram of head revealed hypoplastic V4 segment left vertebral artery and persistent origin right SECURITY OPERATIONS SPECIALIST. Both congenital variation. No large vessel intracranial arterial occlusion, significant stenosis or aneurysmal change. No left MCA thrombus is identified. CTA of the neck showed dominant right vertebral artery. There is very direct takeoff of the left vertebral artery directly from the aortic arch. Carotid vessels of the neck are widely patent. EKG shows sinus rhythm with fusion complexes. MRI of the brain with and without contrast from 05/20/2020 shows negative MR scan of the brain. No evidence of an infarct. Guzman's palsy was suspected. Patient was given prednisone 80 mg yesterday in the ER. Also started on Valtrex. Patient feels his symptoms have improved. Patient has smoked 1 pack per day for 40 years. Denies any hypertension or diabetes. Review of Systems Right facial weakness. All other 14 point of recent systems unremarkable. Past Medical History Past Medical History: No Reported History History of Any Multi-Drug Resistant Organisms: None Reported Past Surgical History: No Surgical Hx Reported Additional Past Surgical History / Comment(s): pt. states he had a lump removed from his back Past Anesthesia/Blood Transfusion Reactions: No Reported Reaction Past Psychological History: No Psychological Hx Reported Smoking Status: Current every day smoker Past Alcohol Use History: Daily Past Drug Use History: Marijuana, Methamphetamine - Past Family History Mother Additional Family Medical History / Comment(s): maternal aunt had stroke Medications and Allergies Home Medications Medication Instructions Recorded Confirmed Type Ofloxacin 0.3% Ophth Soln [Ocuflox 1 drops LEFT EYE Q4HR 7 Days #1 05/21/20 Rx Ophth Soln] bottle Allergies Allergy/AdvReac Type Severity Reaction Status Date / Time No Known Allergies Allergy Verified 05/20/20 14:13 Physical Examination - Vital Signs Vital Signs: Vital Signs Temp Pulse Pulse Resp BP BP Pulse Ox 05/21/20 03:10 98.3 F 85 17 113/56 97 05/21/20 00:46 98.8 F 75 17 101/57 96 05/20/20 20:25 98.2 F 83 18 121/72 97 05/20/20 18:00 72 18 05/20/20 17:12 97.9 F 82 18 123/78 98 05/20/20 15:59 98.3 F 72 17 124/79 97 05/20/20 15:19 77 16 119/76 100 05/20/20 12:52 98.3 F 106 H 18 128/73 97 Intake and Output 05/20/20 05/21/20 05/21/20 22:59 06:59 14:59 Intake Total 240 Output Total 410 Balance -170 Intake: Oral 240 Output: Urine 410 Other: # Voids 1 1 1 Weight 77.111 kg 78.2 kg On examination patient is a middle aged male, very pleasant in no acute distress. Patient is alert and awake fully oriented. Speech and language functions are normal. Attention, concentration and fund of knowledge is adequate. On cranial examination pupils are round and reactive to light, visual chisholm are full on confrontation, extraocular muscles are intact with no nystagmus. Face is moderately weak on the right side, upper and lower part. Facial sensation is normal. Tongue protrudes the midline. Palatal elevation sensation normal, hearing and shoulder shrug normal. On muscle strength testing there is no pronator drift and the strength is normal in arms and legs distally and proximally reflexes are symmetric, plantars downgoing. Sensory to touch is equal. No ataxia for [id number] testing, tone and bulk of muscles and gait is normal. No carotid bruit or murmur, peripheral pulses present. Patient has clubbing of the fingers of hands. Results - Laboratory Findings CBC and BMP: 05/20/20 13:24 05/20/20 13:24 Abnormal Lab Findings: Abnormal Labs 05/20/20 05/21/20 13:24 06:49 Glucose 119 H LDL Cholesterol, Calc 134 H HDL Cholesterol 36 L Assessment and Plan Assessment: * Guzman's palsy, right side, at least moderate degree. * Tobacco use Plan: * Prednisone 60 mg daily for 7 days, then decrease by 10 mg daily until off. * Valtrex 1 g 3 times a day for 7 days * Patient recommended to take Pepcid or Tums, if he gets any gastric upset from prednisone. * Patient does have clubbing of the fingers. He was recommended tobacco cessation. Consider chest x-ray or CT to rule out any mass. Informed patient to discuss with primary physician. * Neurologically clear for discharge.
--- NOTE | 2020-05-21 14:01 | P.DS ---
Providers Date of admission: 05/20/20 15:28 Expected date of discharge: 05/21/20 Attending physician: Madhavi Gaxiola Consults: 05/20/20 15:29 Consult Physician Urgent Consulting Provider: Erica Tiwari Consult Reason/Comments: right sided facial droop, possible petechial brain hemorrhage Do you want consulting provider notified?: Yes Primary care physician: Madhavi Gaxiola [facility] Course: Discharge diagnosis 1. 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 MRI negative for acute infarct. Neurology services have been consulted. Patient started on Valtrex and prednisone. Per nursing services patient has been cleared by neurology services. Recommended discharge home on Valtrex and prednisone 2. Abrasion to left eye. patient started on ofloxacin eye drops 3. Nicotine dependence. Patient declined nicotine patch at this time. Patient educated greater than 3 minutes on smoking cessation Hospital course This is a 50 year old male patient right facial droop that he reports started Tuesday night. Patient reports he is unable to close his right eye and has blurry vision. Patient denies any other new neurological symptoms. Denies loss of consciousness or history of trauma. Patient denies any significant medical history. Does admit to smoking approximately 1 pack a day. Denies any previous episodes similar to current episode. Head CT was performed in ER showing a partially hyperdense left MCA indicating luminal thrombus small petechial hemorrhage within the periphery of the left parietal lobe axial Image 27 and coronal image 38 is difficult to exclude. Patient was evaluated by neurology services and it was recommended MRI to be completed. MRI was completed showing negative scan of brain no evidence of infarct. She started on prednisone and Valtrex. Patient also reports that he recently got wood chip into his left eye when he was chopping wood last week. Patient was started on ofloxacin eyedrops. Patient does have noted right facial paralysis unable to raise eyebrow an uneven smile to right side. Equal strength throughout all extremities. Patient alert and oriented 3 able to answer questions appropriately. Patient currently getting treated for Guzman's palsy awaiting neurology input. Patient denies any significant improvement with the initiation of prednisone and Valtrex. Patient denies any recent illness. Patient denies chest pain or shortness breath. Patient denies nausea vomiting or diarrhea. Patient denies any urinary burning or frequency Patient has been cleared by neurology services work medications for prednisone and Valtrex upon discharge. Ofloxacin eyedrops to continue after discharge. Patient advised to follow-up closely with PCP for further management Patient Condition at Discharge: Stable Plan - Discharge Summary Discharge Rx Participant: No New Discharge Prescriptions: New Ofloxacin 0.3% Ophth Soln [Ocuflox Ophth Soln] 1 drops LEFT EYE Q4HR 7 Days #1 bottle Discharge Medication List Ofloxacin 0.3% Ophth Soln [Ocuflox Ophth Soln] 1 drops LEFT EYE Q4HR 7 Days #1 bottle 05/21/20 [Rx] Follow up Appointment(s)/Referral(s): Madhavi Gaxiola MD [Primary Care Provider] - 1-2 days Discharge Disposition: HOME SELF-CARE
[2020-05-21 14:46] VITALS: BP 128/74; PULSE 77
[2020-05-22] MEDS ORDERED: PANTOPRAZOLE 40 MG TABLET PO SCH (07:30)
[2020-05-22] MEDS ORDERED: ENOXAPARIN 40 MG/0.4 ML SYRINGE SQ SCH (09:00)
== END 2020-05-21 15:19 | disposition home or self-care (01) ==
LOC: EC 12:34 → 3SCARD 15:28
PROVIDERS: ADMIT Internal Medicine; ATTEND Internal Medicine
DX: R20.0 Anesthesia of skin (principal); R47.1 Dysarthria and anarthria; R29.810 Facial weakness; H53.8 Other visual disturbances; R51.9 Headache, unspecified; S05.8X2A Other injuries of left eye and orbit, initial encounter; R68.3 Clubbing of fingers; R23.3 Spontaneous ecchymoses; F17.210 Nicotine dependence, cigarettes, uncomplicated; Z82.3 Family history of stroke
CPT/HCPCS: 99285; 36415; 93005; 97161; 80061; 80053; 84484; 85025; 85610; 85730; 70496; 70450; 70498; 70553; G0378 ×2; J7512 ×2; A9585; Q9967

== ENCOUNTER → 2023-03-21 | Outpatient (CLI) | payer OTHER ==
[2023-03-22 02:25] LABS: Basophils # (A) 0.08 X 10*3/uL (0.00-0.10); Basophils % (A) 1.2 %; Eosinophils # (A) 0.34 X 10*3/uL (0.04-0.35); Eosinophils % (A) 5.1 %; HCT 47.5 % (39.6-50.0); HGB 15.5 g/dL (13.0-17.0); Lymphocytes # (A) 2.03 X 10*3/uL (0.90-5.00); Lymphocytes % (A) 30.3 %; MCH 30.8 pg (27.0-32.0); MCHC 32.6 g/dL (32.0-37.0); MCV 94.4 FL (80.0-97.0); Mean Platelet Volume 9.9 FL (9.5-12.2); Monocytes # (A) 0.42 X 10*3/uL (0.20-1.00); Monocytes % (A) 6.3 %; NRBC Per 100 WBC 0 X 10*3/uL (0.00-0.01); Neutrophils # (A) 3.83 X 10*3/uL (1.80-7.70); Platelet Count 324 X 10*3/uL (140-440); RBC 5.03 X 10*6/uL (4.40-5.60); WBC 6.71 X 10*3/uL (4.50-10.00)
== END | disposition home or self-care (01) ==
LOC: LABPAT 15:49
PROVIDERS: ATTEND Surgery
DX: Z01.812 Encounter for preprocedural laboratory examination (principal); K40.20 Bilateral inguinal hernia, without obstruction or gangrene, not specified as recurrent; R94.31 Abnormal electrocardiogram [ECG] [EKG]
CPT/HCPCS: 85025; 86850; 86900; 86901; 93005

== ENCOUNTER 2023-03-30 12:42 | Day surgery (SDC) | payer OTHER ==
[~2023-03-30 12:42] MED LIST: ACETAMINOPHEN TAB 500 MG TAB PO PRN; DEXAMETHASONE SOD PHOSPHATE 4 MG/ML 1 ML VIAL IV ONE; HEPARIN SODIUM,PORCINE/PF 5,000 UNIT/0.5 ML SYRINGE SQ PRN; LACTATED RINGERS 1,000 ML IV SCH; LIDOCAINE 1% (10MG/ML) FOR IV START INTRADERMA PRN; MIDAZOLAM 2 MG/2 ML VIAL IV PRN; ONDANSETRON 4 MG/2 ML VIAL IVP ONE
[2023-03-30] MEDS ORDERED: DEXAMETHASONE SOD PHOSPHATE 4 MG/ML 1 ML VIAL IVP ONE (14:06)
[2023-03-30] MEDS ORDERED: ONDANSETRON 4 MG/2 ML VIAL IVP ONE (14:06)
[2023-03-30] MEDS ORDERED: MIDAZOLAM 2 MG/2 ML VIAL IVP ONE (14:08)
[2023-03-30] MEDS ORDERED: fentaNYL (PF) 50 MCG/ML 2 ML AMP IVP ONE (14:10)
[2023-03-30] MEDS ORDERED: LIDOCAINE 1%-EPI 1:100,000 50 ML VIAL SQ ONE ×2 (14:23→14:47)
[2023-03-30] MEDS ORDERED: ROPIVACAINE 5 MG/ML 30 ML VIAL ONE (14:30)
[2023-03-30] MEDS ORDERED: PROPOFOL 10 MG/ML 20 ML VIAL IV ONE (14:30)
[2023-03-30] MEDS ORDERED: fentaNYL (PF) 50 MCG/ML 2 ML AMP ONE (14:30)
[2023-03-30] MEDS ORDERED: KETOROLAC 15 MG/ML 1 ML VIAL ONE (14:30)
[2023-03-30] MEDS ORDERED: LIDOCAINE 1% INJ 10MG/ML (20 ML MDV) ONE (14:30)
[2023-03-30] MEDS ORDERED: DEXAMETHASONE SOD PHOSPHATE 4 MG/ML 1 ML VIAL ONE (14:30)
[2023-03-30] MEDS ORDERED: SODIUM CHLORIDE 0.9% (PF) 10 ML VIAL ONE (14:30)
[2023-03-30] MEDS ORDERED: KETAMINE HCL IN 0.9 % NACL 50 MG/5 ML SYRINGE ONE (14:30)
[2023-03-30] MEDS ORDERED: NEOSTIGMINE 1 MG/ML 10 ML VIAL ONE (14:30)
[2023-03-30] MEDS ORDERED: PHENYLEPHRINE-0.9% NACL SYG 1,000 MCG/10 ML SYRINGE ONE (14:30)
[2023-03-30] MEDS ORDERED: ROCURONIUM 10 MG/ML (5 ML VIAL) IV ONE (14:30)
[2023-03-30] MEDS ORDERED: SUCCINYLCHOLINE CHLORIDE 200 MG/10 ML VIAL IV ONE (14:30)
[2023-03-30] MEDS ORDERED: GLYCOPYRROLATE 0.2 MG/ML 2 ML VIAL ONE (14:30)
--- NOTE | 2023-03-30 14:44 | P.ANPRN ---
Procedure Note - Anesthesia - Nerve Block Performed Bilateral Erector Spinae Single Time Out Performed: Yes Date of Procedure: 03/30/23 Procedure Start Time: 14:07 Procedure Stop Time: 14:15 Location of Patient: PreOp Indication: Acute Post-Operative Pain, Requested by Surgeon Sedation Type: Sedate with meaningful contact maintained Preparation: Sterile Prep Position: Prone Needle Types: Pajunk Needle Gauge: 21 Ultrasound used to visualize needle placement: Yes Ultrasound used to observe medication spread: Yes Injectate: 0.5% Ropivacaine (see comment for volume) (20 ml +10 ml NS + 4 mg Dexamethasone per side) Blood Aspirated: No Pain Paresthesia on Injection Noted: No Resistance on Injection: Normal Image Stored and Saved: Yes Events: Uneventful and Well Tolerated
--- NOTE | 2023-03-30 15:29 | P.OP ---
Date of Procedure: 03/30/23 Preoperative Diagnosis: Bilateral inguinal hernias Postoperative Diagnosis: Bilateral inguinal hernias Procedure(s) Performed: Laparoscopic robotic system repair Bilateral inguinal hernias Bilateral cord lipoma excision Transversus abdominis plane block Anesthesia: SURINDER Surgeon: Roeglio Rueda Estimated Blood Loss (ml): 10 Pathology: other (Cord lipoma bilateral) Condition: stable Disposition: PACU Description of Procedure: RobThe patient's placed on the operating table in the supine position. The patient received general anesthesia. The patient's abdomen was prepped and draped in usual sterile fashion. The skin was anesthetized 1% local Xylocaine a t the incision sites. Using an 11 blade a skin incision was made at the umbilicus. The fascia was grasped with a [place] and then the peritoneal cavity was entered with the Veress needle. Position of the Veress needle was confirmed with a positive drop test. After adequate insufflation a 5 mm trocar was placed into the peritoneal cavity. The Laparoscope was placed the peritoneal cavity. And a robotic 8 mm trocar was placed in the right lateral position and then another 8 mm robotic trochars placed in the left lateral position. The original 5 mm trocar was exchanged for a 8 mm trocar. A four-quadrant transversus abdominis plane block performed 1% local Xylocaine. The patient was placed in reverse Trendelenburg and then the patient was docked to the robot. Next the peritoneum over top of the right inguinal hernia was incised and then using blunt and sharp dissection and electrocautery the hernia sac was dissected free from the floor of the inguinal canal. The hernia sac was completely reduced into the peritoneal cavity. The cord lipoma was dissected free so pathology. And then using the Pro digitizer operator mesh the hernia was repaired. The peritoneum was then sutured with 20V lock suture. Next the peritoneum over top of the left inguinal hernia was incised and then using blunt and sharp dissection and electrocautery the hernia sac was dissected free from the floor of the inguinal canal. The hernia sac was completely reduced into the peritoneal cavity. Cord lipoma was dissected free and sent to pathology. And then using the Pro digitizer operator mesh the hernia was repaired. The pe ritoneum was then sutured with 20V lock suture. The patient was then undocked the robot. The needle was withdrawn from the peritoneal cavity. The umbilical trocar site was closed with 0 Ethibond suture. The skin was closed interrupted 3-0 Monocryl suture. Dermabond dressing was applied. Patient was sent to recovery in stable condition.
[2023-03-30] MEDS: HYDROmorphone 0.5 MG/0.5 ML SYRINGE IVP PRN ×2 (15:37→15:42)
[2023-03-30] MEDS ORDERED: MEPERIDINE 50 MG/ML SYRINGE IVP ONE ×2 (15:48→15:58)
[2023-03-30 15:52] VITALS: TEMP 98.4
[2023-03-30] MEDS ORDERED: HYDROcodone/APAP 10-325MG 1 EACH TAB ONE (16:30)
[2023-03-30] MEDS ORDERED: HYDROcodone/APAP 10-325MG 1 EACH TAB PO ONE (16:33)
[2023-03-30] MEDS ORDERED: LACTATED RINGERS 1,000 ML IV ONE (16:50)
[2023-03-30 17:23] VITALS: BP 113/70; PULSE 74; RESP 15
== END 2023-03-30 17:50 | disposition home or self-care (01) ==
LOC: OR 12:42
PROVIDERS: ATTEND Surgery
DX: K40.20 Bilateral inguinal hernia, without obstruction or gangrene, not specified as recurrent (principal); D17.6 Benign lipomatous neoplasm of spermatic cord; F41.9 Anxiety disorder, unspecified; M19.90 Unspecified osteoarthritis, unspecified site; F17.200 Nicotine dependence, unspecified, uncomplicated
CPT/HCPCS: 49650; S2900; 64999; 88304